=== PATIENT | female | born 1940 | race Caucasian/White ===

== ENCOUNTER 2017-10-15 18:10 | Inpatient (IN) | payer OTHER ==
[~2017-10-15] VITALS: Ht 149.9 cm; Wt 87.6 kg
[2017-10-15 19:35] LABS: BASOPHIL % 0.3 % (0-2); PLATELET COUNT 161 x10^3mcL (130-400)
[2017-10-15 19:44] LABS: CALCIUM 8.5 mg/dL (8.5-10.1); CARBON DIOXIDE 26.5 mmol/L (21-32); CHLORIDE SERUM 100 mmol/L (98-107); CREATININE SERUM 1.5 mg/dL (0.6-1.0); GLUCOSE SERUM 132 mg/dL (74-106); SODIUM SERUM 136 mmol/L (136-145)
[2017-10-15 19:57] LABS: ALKALINE PHOSPHATASE 64 U/L (46-116); ALT/SGPT 8 U/L (14-59); AST/SGOT 65 U/L (15-37); BILIRUBIN TOTAL 0.44 mg/dL (0.20-1.00); T4(THYROXINE) 7.3 ug/dL (4.7-13.3); TOTAL PROTEIN, SERUM 6.3 g/dL (6.4-8.2)
[2017-10-15 20:09] LABS: ALBUMIN 3.1 g/dL (3.4-5.0)
[2017-10-15] MEDS ORDERED: GRALISE600 MG PO (21:16)
[2017-10-15] MEDS ORDERED: SPIRONOLACTONE25 MG (21:17)
[2017-10-15] MEDS ORDERED: BRILINTA90 M1 PO (21:17)
[2017-10-15] MEDS ORDERED: GOOD SENSE ALL10 MG PO (21:17)
[2017-10-15] MEDS ORDERED: PRINIVIL10 MG PO (21:17)
[2017-10-15] MEDS ORDERED: GOOD SENSE ASPI81 M3 PO (21:18)
[2017-10-15] MEDS ORDERED: LIPITOR40 MG PO (21:18)
[2017-10-15] MEDS ORDERED: LEVEMIR100 U/M1 SC (21:19)
[2017-10-15] MEDS ORDERED: COR6 PO (21:19)
[2017-10-15 22:03] LABS: microscopic required? NO
[2017-10-15 22:17] LABS: urine erythrocyte NEGATIVE (NEGATIVE)
[2017-10-15 22:27] VITALS: BP 135/844
[2017-10-15 22:29] LABS: MAGNESIUM 1.4 mg/dL (1.8-2.4); PHOSPHOROUS 3.1 mg/dL (2.5-4.9)
[2017-10-15 22:30] LABS: CHOLESTEROL/HDL RATIO 3.8; T3 TOTAL 1.07 ng/mL
[2017-10-15 22:31] LABS: FREE T4 1.07 ng/dL (0.76-1.46); FREE THYROXINE INDEX 2.2 ug/dL (1.4-4.5); T4(THYROXINE) 6.8 ug/dL (4.7-13.3)
[2017-10-15 22:33] VITALS: Ht 149.9 cm; Wt 87.6 kg
[2017-10-15 23:13] VITALS: BP 135/84
[2017-10-16 05:40] VITALS: BP 133/63
[2017-10-16 07:16] LABS: BASOPHIL % 0.2 % (0-2); PLATELET COUNT 166 x10^3mcL (130-400); RED CELL DISTRIBUTION WIDTH 13.8 % (11.5-14.5)
[2017-10-16 07:27] LABS: CALCIUM 7.9 mg/dL (8.5-10.1); CARBON DIOXIDE 22.5 mmol/L (21-32); CHLORIDE SERUM 102 mmol/L (98-107); CREATININE SERUM 1.8 mg/dL (0.6-1.0); GLUCOSE SERUM 330 mg/dL (74-106); MAGNESIUM 2.4 mg/dL (1.8-2.4); PHOSPHOROUS 3.8 mg/dL (2.5-4.9); POTASSIUM SERUM 4.2 mmol/L (3.5-5.1); SODIUM SERUM 138 mmol/L (136-145)
[2017-10-16 09:04] VITALS: BP 140/72
[2017-10-16 13:27] VITALS: BP 127/73
[2017-10-16 20:41] VITALS: BP 135/48
[2017-10-17 05:39] VITALS: BP 141/63
[2017-10-17 06:25] LABS: BASOPHIL % 0.2 % (0-2); PLATELET COUNT 160 x10^3mcL (130-400); RED CELL DISTRIBUTION WIDTH 14.1 % (11.5-14.5)
[2017-10-17 06:54] LABS: CALCIUM 7.9 mg/dL (8.5-10.1); CARBON DIOXIDE 22.4 mmol/L (21-32); CHLORIDE SERUM 108 mmol/L (98-107); CREATININE SERUM 1.4 mg/dL (0.6-1.0); GLUCOSE SERUM 171 mg/dL (74-106); MAGNESIUM 2.4 mg/dL (1.8-2.4); PHOSPHOROUS 2.2 mg/dL (2.5-4.9); POTASSIUM SERUM 4.2 mmol/L (3.5-5.1); SODIUM SERUM 140 mmol/L (136-145)
[2017-10-17] MEDS ORDERED: TOLTERODINE TART2 M2 PO (10:10)
[2017-10-17] MEDS ORDERED: ACIDOPHILUS LA1 EACH PO (10:11)
[2017-10-17] MEDS ORDERED: LEVOFLOXACIN500 M1 PO (10:11)
[2017-10-17] MEDS ORDERED: MEDDP PO (10:12)
[2017-10-17 10:22] VITALS: BP 130/53
[2017-10-17] MEDS ORDERED: PULMICORT0.25 MG/2 IH (12:02)
[2017-10-17] MEDS ORDERED: IPRATROPIUM BROM3 M2 HHN (12:05)
[2017-10-17 13:26] VITALS: BP 130/53
== END 2017-10-17 14:20 | disposition home or self-care (01) | DRG 193 ==
LOC: ED 18:10 → DU 21:30
PROVIDERS: Emergency Medicine; Family Medicine
DX: J09.X2 Influenza due to identified novel influenza A virus with other respiratory manifestations (principal); N17.0 Acute kidney failure with tubular necrosis; E44.0 Moderate protein-calorie malnutrition; J44.1 Chronic obstructive pulmonary disease with (acute) exacerbation; J45.901 Unspecified asthma with (acute) exacerbation; E11.65 Type 2 diabetes mellitus with hyperglycemia; E11.51 Type 2 diabetes mellitus with diabetic peripheral angiopathy without gangrene; I25.10 Atherosclerotic heart disease of native coronary artery without angina pectoris; I10 Essential (primary) hypertension; E83.39 Other disorders of phosphorus metabolism; D64.9 Anemia, unspecified; I25.2 Old myocardial infarction; Z79.82 Long term (current) use of aspirin; Z79.4 Long term (current) use of insulin; Z95.5 Presence of coronary angioplasty implant and graft; Z86.73 Personal history of transient ischemic attack (TIA), and cerebral infarction without residual deficits; Z68.39 Body mass index [BMI] 39.0-39.9, adult
CPT/HCPCS: 36600; 82962; 83880; 84439; 87804; 94150; G0378; J1815; J1956; J2405; J2920; J2930; J3475; J7030; J7613; J7620; J7633; J7644; Q0092

== ENCOUNTER 2017-10-18 14:13 | Inpatient (IN) | payer OTHER ==
[~2017-10-18] VITALS: Ht 149.9 cm; Wt 89.9 kg
[~2017-10-18 14:13] MED LIST: ACIDOPHILUS LA1 EACH PO; BRILINTA90 M1 PO; COR6 PO; GOOD SENSE ALL10 MG PO; GOOD SENSE ASPI81 M3 PO; GRALISE600 MG PO; IPRATROPIUM BROM3 M2 HHN; LEVEMIR100 U/M1 SC; LEVOFLOXACIN500 M1 PO; LIPITOR40 MG PO; MEDDP PO; PRINIVIL10 MG PO; PULMICORT0.25 MG/2 IH; SPIRONOLACTONE25 MG; TOLTERODINE TART2 M2 PO
[2017-10-18 15:03] LABS: microscopic required? NO
[2017-10-18 15:10] LABS: urine erythrocyte NEGATIVE (NEGATIVE)
[2017-10-18 15:49] LABS: PLATELET COUNT 182 x10^3mcL (130-400); RED CELL DISTRIBUTION WIDTH 14.3 % (11.5-14.5)
[2017-10-18 15:52] LABS: BASOPHIL % 0 % (0-2)
[2017-10-18 16:02] LABS: CALCIUM 8.2 mg/dL (8.5-10.1); CARBON DIOXIDE 26.2 mmol/L (21-32); CHLORIDE SERUM 109 mmol/L (98-107); CREATININE SERUM 1.2 mg/dL (0.6-1.0); GLUCOSE SERUM 84 mg/dL (74-106); POTASSIUM SERUM 3.8 mmol/L (3.5-5.1); SODIUM SERUM 142 mmol/L (136-145)
[2017-10-18 16:06] LABS: ALKALINE PHOSPHATASE 57 U/L (46-116); ALT/SGPT 36 U/L (14-59); AST/SGOT 61 U/L (15-37); BILIRUBIN TOTAL 0.26 mg/dL (0.20-1.00); TOTAL PROTEIN, SERUM 6.4 g/dL (6.4-8.2)
[2017-10-18 20:28] LABS: MAGNESIUM 2.2 mg/dL (1.8-2.4); PHOSPHOROUS 2.7 mg/dL (2.5-4.9)
[2017-10-18 20:36] LABS: T3 TOTAL 0.92 ng/mL
[2017-10-18 20:37] LABS: FREE T4 0.89 ng/dL (0.76-1.46); FREE THYROXINE INDEX 2.1 ug/dL (1.4-4.5); T4(THYROXINE) 5.6 ug/dL (4.7-13.3)
[2017-10-18 20:48] VITALS: BP 172/79
[2017-10-18 23:39] VITALS: BP 114/66
[2017-10-19 05:57] VITALS: BP 147/61
[2017-10-19 09:49] VITALS: BP 150/62
[2017-10-19 13:00] VITALS: BP 147/71
[2017-10-19 14:22] LABS: PLATELET COUNT 183 x10^3mcL (130-400); RED CELL DISTRIBUTION WIDTH 14.1 % (11.5-14.5)
[2017-10-19 14:23] LABS: BASOPHIL % 0 % (0-2)
[2017-10-19 14:46] LABS: CALCIUM 7.8 mg/dL (8.5-10.1); CHLORIDE SERUM 105 mmol/L (98-107); CREATININE SERUM 1.6 mg/dL (0.6-1.0); GLUCOSE SERUM 239 mg/dL (74-106); POTASSIUM SERUM 5.2 mmol/L (3.5-5.1); SODIUM SERUM 138 mmol/L (136-145)
[2017-10-19 16:56] VITALS: Ht 149.9 cm; Wt 89.9 kg
[2017-10-19 17:05] VITALS: BP 153/57
[2017-10-19 20:20] VITALS: BP 134/52
[2017-10-20 05:19] VITALS: BP 133/68
[2017-10-20 07:27] LABS: CALCIUM 8.1 mg/dL (8.5-10.1); CARBON DIOXIDE 22.9 mmol/L (21-32); CHLORIDE SERUM 107 mmol/L (98-107); CREATININE SERUM 1.3 mg/dL (0.6-1.0); GLUCOSE SERUM 211 mg/dL (74-106); MAGNESIUM 2.2 mg/dL (1.8-2.4); PHOSPHOROUS 2.1 mg/dL (2.5-4.9); POTASSIUM SERUM 4.5 mmol/L (3.5-5.1); SODIUM SERUM 140 mmol/L (136-145)
[2017-10-20 07:37] LABS: BASOPHIL % 0.1 % (0-2); PLATELET COUNT 163 x10^3mcL (130-400); RED CELL DISTRIBUTION WIDTH 14.1 % (11.5-14.5)
[2017-10-20 08:50] VITALS: BP 145/54
[2017-10-20 12:36] VITALS: BP 152/59
[2017-10-20 17:33] VITALS: BP 143/58
[2017-10-20 20:59] VITALS: BP 141/48
[2017-10-21 05:16] VITALS: BP 151/52
[2017-10-21 09:34] VITALS: BP 138/84
[2017-10-21 13:14] VITALS: BP 151/68
[2017-10-21] MEDS ORDERED: LEVEMIR100 U/M1 SC (13:21)
== END 2017-10-21 16:00 | disposition home health service (06) | DRG 637 ==
LOC: ED 14:13 → DU 19:57
PROVIDERS: Emergency Medicine; Family Medicine
DX: E11.649 Type 2 diabetes mellitus with hypoglycemia without coma (principal); G93.41 Metabolic encephalopathy; E44.0 Moderate protein-calorie malnutrition; N17.0 Acute kidney failure with tubular necrosis; E11.65 Type 2 diabetes mellitus with hyperglycemia; E11.51 Type 2 diabetes mellitus with diabetic peripheral angiopathy without gangrene; I10 Essential (primary) hypertension; E78.5 Hyperlipidemia, unspecified; N32.81 Overactive bladder; I25.2 Old myocardial infarction; Z79.4 Long term (current) use of insulin; Z68.37 Body mass index [BMI] 37.0-37.9, adult; Z95.5 Presence of coronary angioplasty implant and graft; Z86.73 Personal history of transient ischemic attack (TIA), and cerebral infarction without residual deficits
CPT/HCPCS: 82962; 83880; 84439; 94150; J1815; J2920; J3490; J7030; J7613; J7620; J7633; J7644; Q0092

== ENCOUNTER 2017-11-16 12:43 | Emergency (ER) | payer OTHER ==
[~2017-11-16] VITALS: Ht 165.1 cm; Wt 88.9 kg
[2017-11-16 12:58] VITALS: Ht 165.1 cm; Wt 88.9 kg
[2017-11-16 18:50] VITALS: BP 144/63
== END 2017-11-16 18:50 | disposition home or self-care (01) ==
LOC: ED 12:43
DX: S29.012A Strain of muscle and tendon of back wall of thorax, initial encounter (principal); S09.90XA Unspecified injury of head, initial encounter; I10 Essential (primary) hypertension; E11.9 Type 2 diabetes mellitus without complications; J45.909 Unspecified asthma, uncomplicated; I25.2 Old myocardial infarction; Z95.5 Presence of coronary angioplasty implant and graft; Z86.73 Personal history of transient ischemic attack (TIA), and cerebral infarction without residual deficits; Z88.0 Allergy status to penicillin; Z88.1 Allergy status to other antibiotic agents; Z88.6 Allergy status to analgesic agent; V49.9XXA Car occupant (driver) (passenger) injured in unspecified traffic accident, initial encounter; Y93.89 Activity, other specified; Y99.8 Other external cause status; Y92.89 Other specified places as the place of occurrence of the external cause

== ENCOUNTER 2018-02-20 18:52 | Inpatient (IN) | payer OTHER ==
[~2018-02-20] VITALS: Ht 149.9 cm; Wt 81.9 kg
[2018-02-20 18:57] VITALS: Ht 149.9 cm; Wt 81.9 kg
[2018-02-20 19:53] LABS: PLATELET COUNT 142 x10^3mcL (130-400)
[2018-02-20 19:55] LABS: BASOPHIL % 0 % (0-2); RED CELL DISTRIBUTION WIDTH 15.1 % (11.5-14.5)
[2018-02-20 20:13] LABS: ALKALINE PHOSPHATASE 124 U/L (46-116); AST/SGOT 52 U/L (15-37); BILIRUBIN TOTAL 0.7 mg/dL (0.20-1.00); CARBON DIOXIDE 24.4 mmol/L (21-32); CHLORIDE SERUM 106 mmol/L (98-107); CREATININE SERUM 1.6 mg/dL (0.6-1.0); GLUCOSE SERUM 174 mg/dL (74-106); LIPASE 237 IU/L (73-393); POTASSIUM SERUM 3.6 mmol/L (3.5-5.1); SODIUM SERUM 143 mmol/L (136-145); TOTAL PROTEIN, SERUM 7.1 g/dL (6.4-8.2)
[2018-02-20 20:15] LABS: ALBUMIN 3.3 g/dL (3.4-5.0)
[2018-02-20 20:56] LABS: ALT/SGPT 29 U/L (14-59)
[2018-02-20 22:05] LABS: UA SPECIFIC GRAVITY 1.025 (1.005-1.035); microscopic required? YES; urine erythrocyte NEGATIVE (NEGATIVE)
[2018-02-20 23:19] VITALS: BP 99/50
[2018-02-21 00:07] LABS: MAGNESIUM 1.2 mg/dL (1.8-2.4); PHOSPHOROUS 1.9 mg/dL (2.5-4.9)
[2018-02-21 00:08] LABS: CHOLESTEROL/HDL RATIO 4.4
[2018-02-21 00:17] LABS: FREE T4 1.03 ng/dL (0.76-1.46); FREE THYROXINE INDEX 2.4 ug/dL (1.4-4.5); T4(THYROXINE) 7.7 ug/dL (4.7-13.3)
[2018-02-21 00:36] LABS: T3 TOTAL 1.13 ng/mL
[2018-02-21 05:57] VITALS: BP 120/60
[2018-02-21 06:23] LABS: PLATELET COUNT 138 x10^3mcL (130-400)
[2018-02-21 06:38] LABS: RED CELL DISTRIBUTION WIDTH 15.3 % (11.5-14.5)
[2018-02-21 06:49] LABS: CALCIUM 8.3 mg/dL (8.5-10.1); CARBON DIOXIDE 25.3 mmol/L (21-32); CHLORIDE SERUM 111 mmol/L (98-107); CREATININE SERUM 1.6 mg/dL (0.6-1.0); GLUCOSE SERUM 175 mg/dL (74-106); POTASSIUM SERUM 4.2 mmol/L (3.5-5.1); SODIUM SERUM 145 mmol/L (136-145)
[2018-02-21 07:45] LABS: BAND NEUTROPHIL 6 % (0-10); MONOCYTE 5 % (0-7); SEGMENTED NEUTROPHILS 83 % (37-75); rbc morphology (normal/abnorm) NORMAL (NORMAL)
[2018-02-21 09:18] VITALS: BP 113/43
[2018-02-21 13:39] VITALS: BP 114/42
[2018-02-21 17:29] VITALS: BP 107/40
[2018-02-21 21:33] VITALS: BP 112/42
[2018-02-22 05:41] VITALS: BP 122/40
[2018-02-22 07:13] LABS: BASOPHIL % 0 % (0-2); CALCIUM 7.6 mg/dL (8.5-10.1); CARBON DIOXIDE 23.2 mmol/L (21-32); CHLORIDE SERUM 111 mmol/L (98-107); CREATININE SERUM 1.7 mg/dL (0.6-1.0); GLUCOSE SERUM 149 mg/dL (74-106); MAGNESIUM 1.4 mg/dL (1.8-2.4); PHOSPHOROUS 1.9 mg/dL (2.5-4.9); PLATELET COUNT 106 x10^3mcL (130-400); POTASSIUM SERUM 3.9 mmol/L (3.5-5.1); RED CELL DISTRIBUTION WIDTH 15.5 % (11.5-14.5); SODIUM SERUM 145 mmol/L (136-145)
[2018-02-22 08:30] VITALS: BP 114/42
[2018-02-22 13:15] VITALS: BP 137/47
[2018-02-22 16:53] VITALS: BP 141/71
[2018-02-22 21:03] VITALS: BP 134/50
[2018-02-23 05:44] VITALS: BP 136/50
[2018-02-23 05:56] LABS: CALCIUM 7.3 mg/dL (8.5-10.1); CARBON DIOXIDE 23.1 mmol/L (21-32); CHLORIDE SERUM 113 mmol/L (98-107); CREATININE SERUM 1.5 mg/dL (0.6-1.0); GLUCOSE SERUM 137 mg/dL (74-106); MAGNESIUM 1.5 mg/dL (1.8-2.4); PHOSPHOROUS 2.6 mg/dL (2.5-4.9); POTASSIUM SERUM 3.9 mmol/L (3.5-5.1); SODIUM SERUM 146 mmol/L (136-145)
[2018-02-23 06:00] LABS: BASOPHIL % 0.3 % (0-2)
[2018-02-23 06:49] LABS: PLATELET COUNT 108 x10^3mcL (130-400); RED CELL DISTRIBUTION WIDTH 15.6 % (11.5-14.5)
[2018-02-23 08:24] VITALS: BP 121/55
[2018-02-23 09:30] VITALS: BP 121/55
[2018-02-23] MEDS ORDERED: MAGNESIUM OXID400 MG PO (09:50)
[2018-02-23] MEDS ORDERED: OSCD PO (09:50)
[2018-02-23 12:54] LABS: BASOPHIL % 0.4 % (0-2)
[2018-02-23 13:07] LABS: PLATELET COUNT 116 x10^3mcL (130-400); RED CELL DISTRIBUTION WIDTH 15.9 % (11.5-14.5)
[2018-02-23 13:40] VITALS: BP 134/43
== END 2018-02-23 17:37 | disposition home or self-care (01) | DRG 391 ==
LOC: ED 18:52 → DU 22:09
PROVIDERS: Emergency Medicine; Family Medicine
DX: A08.4 Viral intestinal infection, unspecified (principal); N17.0 Acute kidney failure with tubular necrosis; E44.1 Mild protein-calorie malnutrition; I10 Essential (primary) hypertension; E11.51 Type 2 diabetes mellitus with diabetic peripheral angiopathy without gangrene; E11.42 Type 2 diabetes mellitus with diabetic polyneuropathy; I12.9 Hypertensive chronic kidney disease with stage 1 through stage 4 chronic kidney disease, or unspecified chronic kidney disease; N18.3 Chronic kidney disease, stage 3 (moderate); I25.10 Atherosclerotic heart disease of native coronary artery without angina pectoris; E83.42 Hypomagnesemia; E83.51 Hypocalcemia; D69.6 Thrombocytopenia, unspecified; E83.39 Other disorders of phosphorus metabolism; N32.81 Overactive bladder; E78.5 Hyperlipidemia, unspecified; D64.9 Anemia, unspecified; E87.8 Other disorders of electrolyte and fluid balance, not elsewhere classified; I25.2 Old myocardial infarction; Z79.4 Long term (current) use of insulin; Z79.899 Other long term (current) drug therapy; Z68.27 Body mass index [BMI] 27.0-27.9, adult; Z95.5 Presence of coronary angioplasty implant and graft
CPT/HCPCS: 82962; 83880; 84439; C9113; J1815; J1956; J2405; J3010; J3475; J3490; J7030; Q0092; Q9967

== ENCOUNTER 2019-08-03 21:49 | Inpatient (IN) | payer OTHER ==
[~2019-08-03] VITALS: Ht 149.9 cm; Wt 77.1 kg
[~2019-08-03 21:49] MED LIST changes: +ALL DAY ALL1 MG/1 ML; -GOOD SENSE ALL10 MG PO; +MAGNESIUM OXID400 MG PO; +OSCD PO
--- NOTE | 2019-08-03 22:05 | NUR ---
PT BIB AMBULANCE TODAY WITH C/C OF FLU LIKE SYMPTOMS AND N/V/D. PT REPORTS THAT SHE HAS BEEN "SICK" WITH FEVER AND CHILLS X4-5 DAYS. REPORTS THAT JUST TODAY SHE BEGAN HAVING N/V/D. PT DOES REPORT HISTORY OF DIVERTICULITIS. PT RECEIVED 4MG OF ZOFRAN IVP IN ROUTE, REPORTS LITTLE RELIEF BUT STILL HAVING NAUSEA, NO VOMITING NOTED. PT IS AWAKE AND ALERT, RESP E/U, NAD NOTED. AWAITING MSE.
--- NOTE | 2019-08-03 22:16 | NUR ---
DR TINOCO AT BEDSIDE FOR MSE.
--- NOTE | 2019-08-03 22:42 | NUR ---
PT MEDICATED PER ORDER, PT VERBALIZED UNDERSTANDING OF MEDICATIONS PRIOR TO ADMINISTRATION.
[2019-08-03 22:59] LABS: BASOPHIL % 0.4 % (0-2); PLATELET COUNT 211 x10^3mcL (130-400); RED CELL DISTRIBUTION WIDTH 14.4 % (11.5-14.5)
[2019-08-03 23:07] LABS: CALCIUM 8.9 mg/dL (8.5-10.1); CARBON DIOXIDE 25.5 mmol/L (21-32); CHLORIDE SERUM 104 mmol/L (98-107); CREATININE SERUM 1.5 mg/dL (0.6-1.0); GLUCOSE SERUM 177 mg/dL (74-106); POTASSIUM SERUM 3.7 mmol/L (3.5-5.1); SODIUM SERUM 142 mmol/L (136-145)
[2019-08-03 23:12] LABS: ALBUMIN 3.6 g/dL (3.4-5.0); ALKALINE PHOSPHATASE 80 U/L (46-116); ALT/SGPT 31 U/L (14-59); AST/SGOT 56 U/L (15-37); BILIRUBIN TOTAL 0.6 mg/dL (0.20-1.00); TOTAL PROTEIN, SERUM 7.3 g/dL (6.4-8.2)
[2019-08-03 23:58] LABS: UA SPECIFIC GRAVITY 1.025 (1.005-1.035); microscopic required? YES; urine erythrocyte NEGATIVE (NEGATIVE)
--- NOTE | 2019-08-04 00:48 | NUR ---
PT AWAKE AND ALERT, LAYING IN POSITION OF COMFORT. VSS, RESPS E/U, NAD NOTED AT THIS TIME. PT REPORTS 8/10 STACY PAIN. WILL MAKE MD AWARE.
--- NOTE | 2019-08-04 00:49 | NUR ---
IV ABX STARTED PER MD ORDER.
--- NOTE | 2019-08-04 01:32 | NUR ---
PT REPORTS DECREASE IN HEAD PAIN TO 5/10 AFTER CHIEF II DISPATCHER
--- NOTE | 2019-08-04 01:59 | NUR ---
REPORT GIVEN TO ELIAS ALBERTO MED SURG
[2019-08-04 02:51] VITALS: BP 129/67
--- NOTE | 2019-08-04 03:06 | NUR ---
ADMITTED AN 82 YEARS OLD FEMALE CAME IN VIA GURNEY ACCOMPANIED BYPrema R STAFF WITH C/O GENERALIZED BODY WEAKNESS, ABDOMINAL PAIN, DIARRHEA, NAUSEA AND VOMITING. MEDICATED IN ER FOR PAIN, MORPHINE 4MG IVP AND TORADOL 4MG IVP GIVEN IN ER. KEPT IN COMFORT AND ORIENTED TO ROOM AND DEVICES. IV TO LAC INTACT AND INFUSING WELL. TO CALL DR CERNA FOR ADMISSION ORDERS. WILL CONTINUE TO MONITOR. CALL LIGHT WITHIN REACH.
--- NOTE | 2019-08-04 03:30 | NUR ---
WITH ADMISSION ORDERS FROM DR CERNA AND CARRIED OUT, STARTED WITH D51/2 NS INFUSING AT 75ML/HR. SLEEPING THIS TIME BREATHING EASYA ND NONLABOR. WILL CONTINUE TO MONITOR.
--- NOTE | 2019-08-04 05:08 | NUR ---
SLEEPING THIS TIME DENIES PAIN AND DISCOMFORT SINCE PATIENT ADMITTED TO FLOOR. ALL NEEDS ATTENDED.
[2019-08-04 05:45] VITALS: BP 146/72
--- NOTE | 2019-08-04 07:18 | NUR ---
REPORT TAKEN FROM HIDE COOKING OPERATOR NURSE AT THE BEDSIDE, PATIENT SLEEPING WITH SITTER AT THE BEDSIDE, CHEST RISE AND FALL OBSERVED, NO ACUTE DISTRESS OBSERVED, WILL CONTINUE TO MONITOR.
[2019-08-04 09:16] VITALS: BP 150/67
[2019-08-04 16:58] VITALS: BP 153/61
--- NOTE | 2019-08-04 17:11 | NUR ---
DR. HEBERT PAGED AT THIS TIME TO REPORT THE PATIENT REPORTED GENRALIZED ITCHING, WHICH SHE HAS HAD SINCE BEFORE SHE WAS ADMITTED TO THE HOSPITAL. DR. HEBERT GAVE VERBAL TELEPHONE ORDER FOR 25MG OF BENADRYL PO Q6 PRN. WILL INPUT ORDER AND GIVE, AND CONTINUE TO MONITOR.
--- NOTE | 2019-08-04 19:12 | NUR ---
REPORT GIVEN TO CLOAK ROOM ATTENDANT NURSE, CARE ENDORSED
[2019-08-04 19:52] VITALS: BP 153/51
--- NOTE | 2019-08-04 19:54 | NUR ---
PATIENT RECEIVED IN BED DURING BEDSIDE HANDS OFF AWAKE,ALERT AND ORIENTED X3, FORGETFUL, SPEECH CLEAR. BREATHING EVEN AND UNLABORED BS CLEAR DIMINISHED BASES, ON ROOM AIR SAT 96%. DENIED CHEST PAINS, HR=70BPM, NO TELE ORDER, MED/SURG PATIENT. IV SITE NO SIGN OF INFILTRATION, TAPE SECURED. PATIENT ADMITTED WITH C/O DIARRHEA, PATIENT STATES LAST BM WAS SUNDAY AND IT WAS LOOSE, DENIED HAVING DIARRHEA TODAY, DENIED N/V. DULL BEARABLE ABDOMINAL DISCOMFORT/PAIN RATED AT 4/10 INFORMED ABOUT PAIN MANAGEMENT. SAFETY/FALL PRECATIONS MAINTAINED.
--- NOTE | 2019-08-04 22:30 | NUR ---
PATIENT AWAKE THIS TIME, HS CARE RENDERED, PATIENT OFFERED NO COMPLAINTS. INFORMED TO CALL NURSE IF NEEDS ARISES. SAFETY PRECAUTIONS MAINTAINED. WILL CONTINUE TO MONITOR.
--- NOTE | 2019-08-05 00:34 | NUR ---
COMPLAINED OF FEELING ITCHY NO RASH NOTED, MEDICATEDN PRN FOR ITCHINESS.
--- NOTE | 2019-08-05 01:53 | NUR ---
COMPLAINED OF ABDOMINAL PAIN AND WANTING TO SLEEP, MEDICATED PRN. WILL RE-ASSESS EFFECTIVENESS OF MEDS GIVEN.
--- NOTE | 2019-08-05 02:44 | NUR ---
RE=ASSESS EFFECTIVENESS OF PAIN SHOT, PATIENT SLEEPING BUT AWAKEN WHEN NAME CALLED STATED ABDOMINAL PAIN AT 2/10 NOW, COMFORTABLE.
--- NOTE | 2019-08-05 06:16 | NUR ---
PATIENT AFTER GETTING PAIN MEDS AND SLEEPING SLEPT WELL DURING THE SHIFT, RECEIVED DESIRED RELIEF FROM PAIN MEDS GIVEN FOR COMPLAINT OF ABDOMINAL PAIN. MEDICATED WITH BENADRYL FOR COMPLAINT OF ITCHINESS NO RASH NOR REDNESS NOTED, RECEIVED RELIEF. IV SITE NO SIGN OF INFILTRATION, TAPE SECURED. ASSISTED OOB TO THE BATHROON WITH SLOW STEADY GAIT, VOIDED WITHOUT DIFF. NO DIARHHEA DURING THE SHIFT. SAFETY/FALL PRECAUTIONS OBSERVED AND MAINTAINED. WILL ENDORSE CONTINUITY OR CARE TO INCOMING NURSE.
[2019-08-05 06:32] VITALS: BP 138/56
[2019-08-05 06:34] VITALS: BP 138/56
[2019-08-05 06:55] LABS: BASOPHIL % 0.5 % (0-2); PLATELET COUNT 166 x10^3mcL (130-400); RED CELL DISTRIBUTION WIDTH 14.2 % (11.5-14.5)
[2019-08-05 07:03] LABS: ALKALINE PHOSPHATASE 60 U/L (46-116); ALT/SGPT 22 U/L (14-59); AST/SGOT 43 U/L (15-37); BILIRUBIN TOTAL 0.48 mg/dL (0.20-1.00); CALCIUM 7.9 mg/dL (8.5-10.1); CHLORIDE SERUM 107 mmol/L (98-107); CREATININE SERUM 1.6 mg/dL (0.6-1.0); GLUCOSE SERUM 127 mg/dL (74-106); MAGNESIUM 1.8 mg/dL (1.8-2.4); POTASSIUM SERUM 3.4 mmol/L (3.5-5.1); SODIUM SERUM 140 mmol/L (136-145)
[2019-08-05 07:17] LABS: ALBUMIN 2.8 g/dL (3.4-5.0); TOTAL PROTEIN, SERUM 5.6 g/dL (6.4-8.2)
--- NOTE | 2019-08-05 07:30 | NUR ---
PT ENDORSE TO ME THIS MORNING, LAYING IN BED RESTING. AA/O X4. BREATHING EVEN AND UNLABORED ON RA, NO ACUTE RESP DISTRESS OR SOB NOTED. MEDSURG/ DENIES ANY CP OR PRESSURE. VOIDS FREELY. BRP. AMB WITH ASSIST AT TIMES. SKIN WARM TO TOUCH AND INTACT. IV TO THE LAC INTACT AND PATENT/ INFUSING D5 1/2 NS AT 75ML/HR. TOLERATING WELL. CALL LIGHT IN REACH. BED IN LOW POSITION. WILL CONTINUE TO MONITOR.
--- NOTE | 2019-08-05 07:33 | NUR ---
bedside hands off report and introduction performed with incoming nurse dorinda.
[2019-08-05 08:59] VITALS: BP 155/45
--- NOTE | 2019-08-05 10:00 | NUR ---
PT C/O N/V, MEDICATED PER EMAR.
--- NOTE | 2019-08-05 14:25 | NUR ---
PT SITTING UP IN CHAIR, ASSISTED TO BATHROOM, TOLERATED 100 % OF LUNCH.,DENIES ANY N/V OR PAIN AT THIS TIME. WILL CONTINUE TO MONITOR.
[2019-08-05 17:44] VITALS: BP 170/75
--- NOTE | 2019-08-05 17:51 | NUR ---
PT DR. HEBERT DUE TO CURRENT BP. WILL CONTINUE TO MONITOR.
--- NOTE | 2019-08-05 18:56 | NUR ---
NO ACUTE CHANGES AT THIS TIME. NO ACUTE RESP DISTRESS OR SOB NOTED. PT STATED N/V IS MUCH BETTER. PAGED DR. HEBERT REGRADING PT CURRENT BP, STILL WAITING CALL BACK / TO ASK IF WE CAN CONTINUE CURRENT HOME MEDS. WILL ENDORSE TO INCOMING RN.
--- NOTE | 2019-08-05 19:35 | NUR ---
PT RECEIVED A/O X4, ABLE TO MAKE NEEDS KNOWN. MED-SURG, DENIES ANY CP/PRESSURE. PULSES PALPABLE, NO EDEMA PRESENT. BREATHING IS EVEN AND UNLABORED ON RA, NO RESP DISTRESS NOTED. ABD SOFT AND NONDISTENDED, PT REPORTS INTERMITTENT EPISODES OF NAUSEA. VOIDS FREELY, BRP. GENERALIZED WEAKNESS, AMBULATORY WITH STEADY GAIT. SKIN IS WARM AND DRY, INTACT. PT DENIES HAVING ANY PAIN AT THIS TIME. IV TO LAC, INTACT. NO ACUTE DISTRESS NOTED. BED IN LOWEST SETTING, SIDE RAILS UP X2, CALL LIGHT WITHIN REACH. WILL CONT TO MONITOR.
--- NOTE | 2019-08-05 20:05 | NUR ---
DR HEBERT CALLED AND MADE AWARE OF BP. PER DR HEBERT, "I'M NOT CONCERNED ABOUT THE PT'S BP RIGHT NOW." NO NEW ORDERS RECEIVED. PT IN NO ACUTE DISTRESS. WILL CONT TO MONITOR.
[2019-08-05 21:06] VITALS: BP 180/75
--- NOTE | 2019-08-05 21:56 | NUR ---
PT C/O NAUSEA, PRN ZOFRAN IVP GIVEN ORDERED. EMESIS BAG PROVIDED. NO ACUTE DISTRESS NOTED. WILL CONT TO MONITOR.
--- NOTE | 2019-08-05 22:48 | NUR ---
PT C/O INSOMNIA, PRN AMBIEN GIVEN ORDERED. WILL CONT TO MONITOR.
--- NOTE | 2019-08-06 01:19 | NUR ---
PT RESTING IN BED WITH EYES CLOSED, BUT IS EASILY AROUSABLE. BREATHING IS EVEN AND UNLABORED, NO RESP DISTRESS NOTED. NO S/S OF PAIN OBSERVED. IVF INFUSING WELL, SITE WNL. NO ACUTE DISTRESS NOTED. CALL LIGHT WITHIN REACH. WILL CONT TO MONITOR.
--- NOTE | 2019-08-06 05:37 | NUR ---
PT SLEPT AT INTERVALS THROUGHOUT THE EVENING. BREATHING IS EVEN AND UNLABORED, NO RESP DISTRESS NOTED. PT DENIES HAVING ANY NAUSEA OR PAIN AT THIS TIME. NO ACUTE CHANGES ENCOUNTERED DURING SHIFT. ALL NEEDS MET AND ANTICIPATED. PT COMPLIANT WITH NURSING CARE. IV TO LAC, INTACT. CALL LIGHT WIITHIN REACH. WILL ENDORSE CARE TO AM NURSE.
[2019-08-06 05:46] VITALS: BP 154/56
[2019-08-06 06:36] LABS: BASOPHIL % 0.4 % (0-2)
[2019-08-06 06:44] LABS: ALKALINE PHOSPHATASE 60 U/L (46-116); AST/SGOT 40 U/L (15-37); BILIRUBIN TOTAL 0.32 mg/dL (0.20-1.00); CALCIUM 7.9 mg/dL (8.5-10.1); CARBON DIOXIDE 23.9 mmol/L (21-32); CHLORIDE SERUM 109 mmol/L (98-107); CREATININE SERUM 1.3 mg/dL (0.6-1.0); GLUCOSE SERUM 138 mg/dL (74-106); MAGNESIUM 1.8 mg/dL (1.8-2.4); POTASSIUM SERUM 3.5 mmol/L (3.5-5.1); SODIUM SERUM 142 mmol/L (136-145)
[2019-08-06 06:55] LABS: ALBUMIN 2.8 g/dL (3.4-5.0); TOTAL PROTEIN, SERUM 5.7 g/dL (6.4-8.2)
--- NOTE | 2019-08-06 07:10 | NUR ---
RECIEVED PT SITTING UP IN BED WITH NO C/O PAIN OR DISTRESS. A/O X4 NO STACY OR DIZZINESS REPORTED. D5-0.45%NS RUNNING AT 75ML/HR IN LAC, INTACT AND PATENT WITH NO REDNESS OR INFLAMMATION. SAFETY PRECAUTIONS IN PLACE, CALL LIGHT WITHIN REACH, WILL MONITOR.
--- NOTE | 2019-08-06 07:27 | NUR ---
PT IN NO ACUTE DISTRESS. CONTINUITY OF CARE ENDORSED TO CYNTHIA ALBERTO. ALL QUESTION AND CONCERNS ADDRESSED.
[2019-08-06 07:45] LABS: PLATELET COUNT 166 x10^3mcL (130-400); RED CELL DISTRIBUTION WIDTH 14.4 % (11.5-14.5)
[2019-08-06 07:51] LABS: ALT/SGPT 25 U/L (14-59)
[2019-08-06 09:04] VITALS: BP 153/43
--- NOTE | 2019-08-06 11:25 | NUR ---
LAC REMOVED WITH CATHETER INTACT D/T LEAKING. NEW IV STARTED IN LFA 22G, BOTH SITES FREE OF REDNESS OR INFLAMMATION.
--- NOTE | 2019-08-06 12:32 | NUR ---
TORADOL GIVEN PER EMAR FOR C/O , WILL REASSESS.
--- NOTE | 2019-08-06 15:03 | NUR ---
PT STABLW WITH NO C/O PAIN OR DISTRESS. SAFETY PRECAUTIONS IN PLACE, CALL LIGHT WITHIN REACH, WILL MONITOR.
[2019-08-06 17:21] VITALS: BP 184/79
--- NOTE | 2019-08-06 17:38 | NUR ---
ZOFRAN GIVEN PER EMAR FOR C/O NAUSEA, WILL REASSESS.
--- NOTE | 2019-08-06 18:24 | NUR ---
PT STABLE AT THSI TIME WITH NO C/O PAIN OR DISTRESS. NO N/V NOTED AT THIS TIME. A/O X4 WITH NO STACY OR DIZZINESS. LUNGS CTAB, NO SOB NOTED. D5-0.45% NS RUNNING AT 75ML/HR IN LFA, IV INTACT AND PATENT WITH NO REDNESS OR INFLAMMATION NOTED. SAFETY PRECAUTIONS IN PLACE, CALL LIGHT WITHIN REACH, WILL ENDORSE CARE TO NIGHT NURSE.
[2019-08-06 18:45] VITALS: BP 150/72
--- NOTE | 2019-08-06 19:30 | NUR ---
Pt. received from day shift, currently resting in bed on the phone. Pt. is a/o x3, able to make needs known, able to follow commands. Pt. has no c/o of chest pain or of SOB at this time. Pt. does c/o of feeling nauseous and does report that the zofran given earlier was not helping that much, but the toradol did. Informed pt. that I will place a call to the MD to see if they can order a stronger anti-nausea medication at this time. Pt. agreed and will continue to monitor pt. Pt. noted to be ambulatory and as per day shift does need assitance getting out of bed, will continue to monitor. Pt. IV in tact and D5 1/2 NS running at 75 on LFA 22g running at this time. Pt. safety in check with call light placed within reach, educated pt. on when and how to use call light system, bed set at lowest position, will continue to monitor. pt.
[2019-08-06 20:22] VITALS: BP 170/44
--- NOTE | 2019-08-06 20:49 | NUR ---
Pt. req something stronger for Nausea, IP call center called at [phone], Candice was on the other end of the line. Dr. Mitchell paged d/t on-call status for the night. Will ask MD for another medication for nausea.
--- NOTE | 2019-08-06 21:01 | NUR ---
Dr. Mitchell called back at 2100 and gave New Order for Phenergan 12.5 mg IVP q4h for Nausea/Vomitting at this time. Will continue to monitor pt.
--- NOTE | 2019-08-06 22:28 | NUR ---
Pt. c/o of h/a at this time, will medicate as ordered w/ toradol. Pt. also c/o of nausea will medicate w/ phenergan as ordered. Will continue to monitor pt. Educated pt. when and how to use call light system and ensured bed set at lowest position.
--- NOTE | 2019-08-06 23:26 | NUR ---
Pt. c/o of not being able to sleep at this time, will medicate w/ ambien as ordered and continue to monitor.
--- NOTE | 2019-08-07 02:41 | NUR ---
Pt. resting in bed, asleep, able to be aroused using verbal stimuli. pt. has no c/o of pain, sob, or s/o of distress at this time. Pt. was given ab(x) at this time also. Pt. safety in check with call light placed within reach, pt. bed set at lowest position, will continue to monitor pt.
--- NOTE | 2019-08-07 04:43 | NUR ---
Pt. asleep through most of the shift, no c/o of pain, SOB, or s/o distress. Pt. did ask for ambien around midnight, medicated pt. as ordered. Pt. currently asleep but easily arousable with verbal stimuli. Pt. stable throughout shift, safety in check with call light placed within reach, bed set at lowest position, will continue to monitor pt. until the end of shift and endorse to next shift RN.
[2019-08-07 07:02] LABS: BASOPHIL % 0.5 % (0-2); PLATELET COUNT 180 x10^3mcL (130-400); RED CELL DISTRIBUTION WIDTH 14.5 % (11.5-14.5)
--- NOTE | 2019-08-07 07:15 | NUR ---
RECEIVED PATIENT. ALERT AWAKE, AND ORIENTED X4. NO ACUTE RESPIRATORY DISTRESS NOTED. REMAINS ON ROOM AIR. NO C/O CHEST PAIN OR PRESSURE AT THIS TIME. PATIENT IS SLIGHTLY NAUSEATED, STATES THAT IT MIGHT BE GOOD TO HAVE NAUSEA MEDICATION BEFORE BREAKFAST. REASSURED PATIENT THAT SHE WILL BE GIVEN ZOFRAN TO AID WITH NAUSEA. SAFETY PRECAUTIONS IN PLACE. CALL LIGHT WITHIN REACH. WILL CONTINUE TO MONITOR.
[2019-08-07 07:27] LABS: ALKALINE PHOSPHATASE 62 U/L (46-116); ALT/SGPT 26 U/L (14-59); AST/SGOT 47 U/L (15-37); BILIRUBIN TOTAL 0.4 mg/dL (0.20-1.00); CALCIUM 7.9 mg/dL (8.5-10.1); CARBON DIOXIDE 24.6 mmol/L (21-32); CHLORIDE SERUM 108 mmol/L (98-107); CREATININE SERUM 1.2 mg/dL (0.6-1.0); GLUCOSE SERUM 107 mg/dL (74-106); MAGNESIUM 1.5 mg/dL (1.8-2.4); POTASSIUM SERUM 3.2 mmol/L (3.5-5.1); SODIUM SERUM 144 mmol/L (136-145)
[2019-08-07 07:30] LABS: ALBUMIN 2.9 g/dL (3.4-5.0); TOTAL PROTEIN, SERUM 5.8 g/dL (6.4-8.2)
--- NOTE | 2019-08-07 07:40 | NUR ---
OFFERED PATIENT NAUSEA MEDICATION AT THIS TIME. PATIENT STATES NO NEED FOR NAUSEA MEDICATION AT THIS TIME AND WILL TRY TO EAT BREAKFAST WITHOUT MEDICATION.
[2019-08-07 08:55] VITALS: BP 147/61
--- NOTE | 2019-08-07 09:45 | NUR ---
PATIENT IS AWAKE, ALERT AND ORIENTED X4. NO RESPIRATORY DISTRESS NOTED. NO C/O PAIN AT THIS TIME. PATIENT COMPLAINED OF BURNING IV SITE. D/C IV TO LFA, WILL INSERT NEW IV. NO COMPLAINT OF CHEST PAIN. ASSISTED PATIENT TO GET OFF BED AND WALK TO THE RESTROOM. SAFETY PRECAUTIONS IN PLACE. CALL LIGHT WITHIN REACH. WILL CONTINUE TO MONITOR.
--- NOTE | 2019-08-07 10:40 | NUR ---
SPOKE TO DR HEBERT AT THIS TIME REGARDING PATIENT POC. PER DR EMILEE ROLDAN TO INPUT TELEPHONE ORDER TO ADVANCE PATIENT DIET TO [facility] AND TELEPHONE ORDER SET FOR INSULIN SLIDING SCALE. REPORTED TO DR HEBERT PATIENT POTASSIUM 3.[address] EMILEE ROLDAN TO INPUT TELEPHONE ORDER FOR 40MEQ POTASSIUM PO. ALL TELEPHONE ORDERS READ BACK, CONFIRMED, AND FOLLOWED THROUGH. ALL NEEDS ATTENDED TO. WILL CONTINUE TO MONITOR
--- NOTE | 2019-08-07 11:20 | NUR ---
NEW IV STARTED TO RFA 22G BY GLENN, CHARGE NURSE. PATIENT TOLERATED WELL. IV INTACT AND PATENT. WILL CONTINUE TO MONITOR.
--- NOTE | 2019-08-07 11:57 | NUR ---
PATIENT COMPLAINING OF NAUSEA. ZOFRAN 4MG IVP GIVEN. PATIENT TOLERATED WELL. WILL CONTINUE TO MONITOR.
--- NOTE | 2019-08-07 12:30 | NUR ---
PATIENT IS IN BED, EATING LUNCH. NO ACUTE RESPIRATORY DISTRESS NOTED. NO C/O OF NAUSEA AT THIS TIME. PATIENT TOLERATING DIET WELL. PATIENT STABLE. IV INTACT AND PATENT, NO INFILTRATION NOTED. SAFETY PRECAUTION IN PLACE. HOB ELEVATED. CALL LIGHT WITHIN REACH. WILL CONTINUE TO MONITOR.
--- NOTE | 2019-08-07 15:30 | NUR ---
PATIENT IS IN BED, SLEEPING. REMAINS ON ROOM AIR, NO ACUTE RESPIRATORY DISTRESS NOTED. NO C/O PAIN OR NAUSEA AT THIS TIME. IV INTACT AND PATENT. SAFETY PRECAUTIONS IN PLACE. CALL LIGHT WITHIN REACH. WILL CONTINUE TO MONITOR.
--- NOTE | 2019-08-07 16:53 | NUR ---
PATIENT IS COMPLAINING OF NAUSEA, PROMETHAZINE 12.5 MG IVP GIVEN. PATIENT TOLERATED WELL. WILL CONTINUE TO MONITOR.
[2019-08-07 17:00] VITALS: BP 119/65
--- NOTE | 2019-08-07 18:42 | NUR ---
PATIENT IS STABLE. NO ACUTE RESPIRATORY DISTRESS NOTED. REMAINS ON ROOM AIR. NO C/O PAIN OR DISCOMFORT AT THIS TIME. IV INTACT AND PATENT, NO INFILTRATION NOTED. SAFETY PRECAUTION IN PLACE. HOB ELEVATED. BLE ELEVATED FOR COMFORT. CALL LIGHT WITHIN REACH. ALL NEEDS MET. CALL LIGHT WITHIN REACH. ALL NEEDS ATTENDED TO. WILL ENDORSE TO SCRUB TECH NURSE.
--- NOTE | 2019-08-07 19:20 | NUR ---
RECEIVED PT FROM KIMANI ALBERTO. PT IS AAOX4 AND DENIES HEADACHE OR DIZZINES AT THIS TIME. PT IS MED-SURG AND DENIES CHEST PAIN OR PRESSURE AT THIS TIME. PT PULSES ARE PALPABLE AND CAP REFILL <3 SEC. PT LUNG SOUNDS ARE CTA ON RA. PT BREATHING IS EVEN AND UNLABORED. PT DENIES SOB OR RESPIRATORY DISTRESS AT THIS TIME. PT ABD IS SOFT AND NONDISTENDED. PT BOWEL SOUNDS ACTIVE X4. PT C/O NAUSEA AND DENIES V/D AT THIS TIME. PT LBM 08/07/19, SOFT. PT VOIDS FREELY. PT C/O PAIN UPON URINATION AND ITCHINESS IN HER VAGINA. PT HAS GENERALIZED WEAKNESS, BUT IS AMBULATORY WITH ASSIST. PT SKIN IS WARM, DRY, AND INTACT. PT IV IS PATENT AND WNL. CALL LIGHT WITHIN REACH. BED IN LOWEST POSITION. SIDE RAILS X2 UP. WILL CONTINUE TO MONITOR.
--- NOTE | 2019-08-07 20:55 | NUR ---
PER MAR, ADMINISTERED BENADRYL FOR ITCHINESS AND PHENERGEN FOR NAUSEA. WILL CONTINUE TO MONITOR.
[2019-08-07 21:35] VITALS: BP 149/54
--- NOTE | 2019-08-07 23:05 | NUR ---
PT C/O PAIN UPON URINATION AND A HEADACHE. PER MAR, ADMINISTERED TORADOL. WILL REASSESS AND WILL CONTINUE TO MONITOR.
--- NOTE | 2019-08-07 23:55 | NUR ---
PT STATED "I WOULD LIKE SOMETHING TO HELP ME SLEEP." PER MAR, ADMINISTERED AMBIEN FOR INSOMNIA. WILL CONTINUE TO MONITOR.
--- NOTE | 2019-08-08 01:31 | NUR ---
PT SLEEPING IN BED. PT BREATHING IS EVEN AND UNLABORED. NO ACUTE DISTRESS NOTED AT THIS TIME. IVF INFUSING WELL. CALL LIGHT WITHIN REACH. BED IN LOWEST POSITION. SIDE RAILS X2 UP. WILL CONTINUE TO MONITOR.
--- NOTE | 2019-08-08 04:54 | NUR ---
PT SLEPT THROUGHOUT MOST OF THE NIGHT AND WOKE UP TO USE THE BATHROOM. PT COMPLIED WITH NURSING CARE THROUGHOUT THE SHIFT. NO ACUTE DISTRESS NOTED DURING THE SHIFT. PT HAD EPISODES OF NAUSEA AND WAS MEDICATED WITH PHENERGAN PER MAR. COMFORT AND SAFETY MEASURES WERE MAINTAINED DURING THE SHIFT. ALL NEEDS AND CONCERNS ADDRESSED. WILL ENDORSE CARE TO DAY SHIFT NURSE. WILL CONTINUE TO MONITOR.
[2019-08-08 05:23] VITALS: BP 145/62
--- NOTE | 2019-08-08 06:08 | NUR ---
PT RFA IV INFILTRATED. NEW IV INSERTION DONE BY DELIVERY MERCHANDISER RHODA. NEW IV LFA 22G. NO S/S OF REDNESS, PAIN, OR SWELLING NOTED. WILL CONTINUE TO MONITOR.
--- NOTE | 2019-08-08 06:30 | NUR ---
ASSISTED PT TO BATHROOM. PT HAD BM, SOFT AND DARK GREEN COLOR. ASSISTED PT BACK TO BED AND RECONNECTED IVF. IVF INFUSING WELL. NO S/S OF INFILTRATION. WILL CONTINUE TO MONITOR.
[2019-08-08 06:45] LABS: BASOPHIL % 0.3 % (0-2); PLATELET COUNT 171 x10^3mcL (130-400); RED CELL DISTRIBUTION WIDTH 14.5 % (11.5-14.5)
[2019-08-08 07:18] LABS: ALKALINE PHOSPHATASE 63 U/L (46-116); ALT/SGPT 26 U/L (14-59); AST/SGOT 50 U/L (15-37); BILIRUBIN TOTAL 0.4 mg/dL (0.20-1.00); CALCIUM 8.3 mg/dL (8.5-10.1); CHLORIDE SERUM 109 mmol/L (98-107); CREATININE SERUM 1.3 mg/dL (0.6-1.0); GLUCOSE SERUM 125 mg/dL (74-106); MAGNESIUM 1.6 mg/dL (1.8-2.4); POTASSIUM SERUM 3.9 mmol/L (3.5-5.1); SODIUM SERUM 142 mmol/L (136-145)
[2019-08-08 07:19] LABS: ALBUMIN 2.8 g/dL (3.4-5.0); TOTAL PROTEIN, SERUM 5.6 g/dL (6.4-8.2)
--- NOTE | 2019-08-08 07:50 | NUR ---
RECEIVED PT FROM SANITATION WORKER HOSING MACHINERY RN. Jamison/MICHAEL. MED SURG. DENIES CHEST PAIN/PRESSURE. RESPIRATIONS EQUAL AND UNLABORED ON RA. DENIES SOB. PT C/O STILL FEELING WEAK. PT DENIES ANY N/V. PT DNENIES ANY PAIN AT THIS TIME. PT C/O PAINFUL URINATION. DR. HEBERT MADE AWARE. IV TO LFA PATENT AND INFUSING. NO REDNESS OR SWELLING NOTED. DR. HEBERT AT BEDSIDE EXPLAINED TO PT WILL KEEP ANOTHER DAY UNTIL TOLERATING DIET WELL. PT VERBALIZED UNDERSTANDING. WILL CONTINUE TO MONITOR. CALL LIGHT IN REACH. BED IN LOWEST POSITION.
--- NOTE | 2019-08-08 09:18 | NUR ---
PT SITTING UP AT BEDSIDE. NO ACUTE RESP DISTRESS NOTED ON RA. PT DENIES ANY PAIN AT THIS TIME. BLOOD PRESSURE CHECKED WAS 139/64. GIVEN PO MEDS. TOLERATED WELL. IV TO LFA PATENT AND INFUSING. NO REDNESS OR SWELLING NOTED. ASSISTED PT BACK TO BED. CALL LIGHT IN REACH. BED IN LOWEST POSITION. WILL CONTINUE TO MONITOR.
[2019-08-08 09:36] VITALS: BP 142/64
--- NOTE | 2019-08-08 12:47 | NUR ---
PT SITTING UP IN BED. NO ACUTE RESP DISTRESS NOTED ON RA. PT DENIES ANY PAIN AT THIS TIME. PT STATES "I AM STILL HAVING DIARRHEA." PT ENCOURAGED TO EAT LUNCH TOLERATED. BLOOD SUGAR CHECKED WAS 94. NO COVERAGE NEEDED. IV PATEN AND INFUSING TO LFA. NO REDNESS OR SWELLING NOTED. WILL CONTINUE TO MONITOR. CALL LIGHT IN REACH. BED IN LOWEST POSITION.
--- NOTE | 2019-08-08 13:33 | NUR ---
1. Recommend continuing [facility] diet.
--- NOTE | 2019-08-08 13:33 | NUR ---
Initial Nutrition Assessment: 207/B BERNIE LEON MR Dx: general weakness, dehydration, diverticulitis PMHx: HTN, DM, Asthma, HLD PSHx: None Labs: BG 125H, CREAT 1.3H, ALB 2.8L, CA 8.3L, HGB 11.1L, MG 1.6L Meds: Adalat, ambien, Benadryl, cipro, Diflucan, flagyl, morphine Diet: [facility] PO intake since admission: (08/07) dinner 60%, breakfast 100%, (08/06) dinner 80%, breakfast 100% Ht: 149.86 cm (59") Wt: 77.1 kg (170#) BMI: 34.3 kg/m2 Bed scale: 77.1 kg IBW: 95# (43 kg) %IBW: 178 UBW: 170# Age: 79/F Food Allergies: NKFA Skin: intact Florin: 19 Edema: none GI: Last BM: 08/07 Per H&P, Pt is a 59 F PMH HTN, DM, Asthma, HLD, presents with 3 day history of worsening abdominal pain. RD Note (08/08): Patient was alert and oriented but appeared weak and drowsy. Patient said that's eh ate cream of wheat and kolb for breakfast this morning. Patient mentioned her food preferences and those were updated in computrition. Problem with: N/V/D/C: some diarrhea Problems with: Chewing: Swallowing: none Current appetite: poor Recent wt change: none %wt change: n/a Vitamin/Supplement use: fish oil, iron Special diet at home: Diabetic Physical activity: sedentary Nutrition education given: Diabetic and high fiber diet education was provided to the patient. Food-drug interactions: none Education given: n/a Estimated Nutritional Needs Based on adjusted body weight (52 kg) Energy: 8246-8325 kcal/day (30-35 kcal/kg for geriatric maintenance) Protein: 62-73 g/day (1.2-1.4 g/kg for geriatric maintenance) Fluid: 6890-9184 mL/day (1 mL/kcal) Nutrition Diagnosis: 1. Inadequate oral intake related to poor appetite as evidenced by current PO <75% Intervention 1. Recommend continuing [facility] diet. Monitor/Evaluate Goal: PO intake at least 75% of estimated needs Monitor: PO intake, Labs, GI function F/U in 3-5 days as moderate risk
--- NOTE | 2019-08-08 17:30 | NUR ---
PT SITTING UP IN BED. NO ACUTE RESP DISTRESS NOTED ON RA. PT DENIES ANY ABDOMINAL PAIN AT THIS TIME. IV ANTIBIOTICS INFUSING TO LFA. NO REDNESS OR SWELLING NOTED. PT C/O ITCHINESS TO GROIN. MEDICATED PER EMAR. BLOOD SUGAR CHECKED WAS 137. NO COVERAGE NEEDED. PT STATES "I AM FEELING BETTER TODAY. I WAS ABLE TO SLEEP." WILL CONTINUE TO MONITOR. CALL LIGHT IN REACH. BED IN LOWEST POSITION.
[2019-08-08 17:52] VITALS: BP 172/61
[2019-08-08 18:43] VITALS: BP 153/52
--- NOTE | 2019-08-08 18:44 | NUR ---
PT SITTING UP IN BED. PT DENIES ANY ITCHINESS AT THIS TIME. IV TO LFA PATENT AND INFUSING. NO REDNESS OR SWELLING NOTED. PT STATES "I HAVE A LITTLE BIT OF NAUSEA BUT IT IS TOLERABLE AT THIS TIME." PT C/O MILD ABDOMINAL PAIN TO RUQ DULL 01/01. PT STATES "ILL ASK FOR PAIN MEDICATION LATER TODAY." WILL ENDORSE TO UPPER LEATHER CUTTER RN. CALL LIGHT IN REACH. BED IN LOWEST POSITION.
--- NOTE | 2019-08-08 19:49 | NUR ---
PT RECIEVED AAO REG RESP NO SOB V/S STABLE,KEPT CLEAN AND DRY TO TOUCH,IV INFUSING WELL WITH THE SITE PATENT AND INTACT,ABDO IS SOFT WITH ACTIVE BOWEL SOUNDS,MADE COMFORTABLE IN BED,CALL LIGHT EASY REACHED AND WILL CONTINUE TO MONITOR.
[2019-08-08 22:07] VITALS: BP 151/61
[2019-08-08 22:12] VITALS: Ht 149.9 cm; Wt 77.1 kg
[2019-08-09 06:12] LABS: BASOPHIL % 0.4 % (0-2); PLATELET COUNT 201 x10^3mcL (130-400)
[2019-08-09 06:16] LABS: ALKALINE PHOSPHATASE 68 U/L (46-116); ALT/SGPT 29 U/L (14-59); AST/SGOT 55 U/L (15-37); BILIRUBIN TOTAL 0.34 mg/dL (0.20-1.00); CALCIUM 8.5 mg/dL (8.5-10.1); CARBON DIOXIDE 25.7 mmol/L (21-32); CHLORIDE SERUM 107 mmol/L (98-107); CREATININE SERUM 1.4 mg/dL (0.6-1.0); GLUCOSE SERUM 156 mg/dL (74-106); MAGNESIUM 2.1 mg/dL (1.8-2.4); POTASSIUM SERUM 3.8 mmol/L (3.5-5.1); SODIUM SERUM 142 mmol/L (136-145); TOTAL PROTEIN, SERUM 6.3 g/dL (6.4-8.2)
[2019-08-09 06:17] VITALS: BP 136/58
[2019-08-09 06:32] LABS: RED CELL DISTRIBUTION WIDTH 14.6 % (11.5-14.5)
[2019-08-09 06:33] LABS: ALBUMIN 3.1 g/dL (3.4-5.0)
--- NOTE | 2019-08-09 06:42 | NUR ---
PT HAD A RESTING NIGHT NO CHANGE AT THIS TIME,WILL CONTIUE TO MONITOR.
--- NOTE | 2019-08-09 06:43 | NUR ---
PT HAD A RESTING NIGHT NO CHANGE AT THIS TIME,WILL CONTINUE TO MONITOR.
--- NOTE | 2019-08-09 07:30 | NUR ---
PT IS AAOX4. NORMAL S1S2 NOTED. RESP EVEN AND UNLABORED. LUNG SOUNDS CTA. ON R/A. NO COUGH NOTED. ABDOMEN ROUND, SOFT, NONTENDER, NONDISTENDED. BOWEL SOUNDS ACTIVE X4. PT DENIES N/V AND DIARRHEA AT THIS TIME. NO DIARRHEA NOTED ON PRIOR NOC SHIFT. IV CATH RUNNING TO LFA. SITE WNL. NO S/S OF INFECTION OR INFILTRATION. PT DENIES PAIN AND DISCOMFORT AT THIS TIME. CALL LIGHT WITHIN REACH. BED IN LOWEST POSTION.
[2019-08-09 09:05] VITALS: BP 133/54
--- NOTE | 2019-08-09 09:24 | NUR ---
SCHEDULED MEDS GIVEN AND TOLERATED WELL. PT DENIES PAIN AND DISCOMFORT. B/P 133/82. HR 82. RESP EVEN AND UNLABORED. NO DISTRESS NOTED. CALL LIGHT WITHIN REACH.
--- NOTE | 2019-08-09 12:37 | NUR ---
SCHEDULED MED GIVEN AND TOLERATED WELL. REVIEWED CHART AND ORDER WITH PT, ALL QUESTIONS AND CONCERNS ANSWERED. RESP EVEN AND UNLABORED. NO DISTRESS NOTED. CALL LIGHT WITHIN REACH.
--- NOTE | 2019-08-09 14:00 | NUR ---
DR. GARCIA HULL DRAFTER MET WITH PT AND DISCUSSED POC. PT HAD C/O BEING UNABLE TO MAINTAIN DIET DUE TO NAUSEA. DR. GARCIA STATED HE WILL CHANGE THE PT'S DIET AND INCREASE FIBER FOR THE PT TO DECREASE THE NAUSEA. PT AGREED WITH POC.
--- NOTE | 2019-08-09 14:54 | NUR ---
PHENERGAN 12.5 DILUTED IN 20ML NS IVP WITH IVF RUNNING AT 75ML, FLUSHED WITH 10 ML N/S. TYLENOL #3 PO GIVEN FOR THROBBING H/A 03/03. EXTRA FLUIDS GIVEN AND ENCOURAGED. RESP EVEN AND UNLABORED. NO DISTRESS NOTED. CALL LIGHT WITHIN REACH.
[2019-08-09 16:04] VITALS: BP 149/61
--- NOTE | 2019-08-09 16:27 | NUR ---
REPORTED TO DR. GARCÍA THAT PT HAD ITCHING, NUMBNESS AND TINGLING TO ARMS, HANDS AND MOUTH AFTER TAKING TYLENOL WITH CODEINE #3. RECEIVED ORDER FOR PT TO NOT ANY MORE NARCOTICS, TO D/C TYLENOL WITH CODEINE #3, AND TO ADD MED PAIN MED TYLENOL 650MG PO Q 6 HOURS PRN. ORDERS NOTED AND CARRIED. PT MADE AWARE. REASSESSED PT. PT S/P BENEDRYL PO, PT NUMBNESS AND TINGLING HAS SUBSIDED. RESP EVEN AND UNLABORED. NO DISTRESS NOTED. CALL LIGHT WITHIN REACH.
--- NOTE | 2019-08-09 17:04 | NUR ---
BS 168, 3 UNITS REG INSULIN GIVEN AT [facility]. PT STATES SHE HAS N/A 4/10 BUT DOES NOT WANT PAIN MEDICATION AT THIS TIME. PT STATES NUMBNESS AND TINGLING TO ARMS, HANDS, AND MOUTH HAVE ALMOST SUBSIDED. RESP EVEN AND UNLABORED. NO DISTRESS NOTED. CALL LIGHT WITHIN REACH.
--- NOTE | 2019-08-09 18:34 | NUR ---
PT IS [id number]. RESP EVEN AND UNLABORED. PT STATES SHE HAS H/A PAIN 4/10 AT THIS TIME BUT STATES SHE DOES NOT WANT PAIN MEDICATION AT THIS TIME. IVF RUNNING TO [facility]. SITE WNL. BED IN LOWEST POSITION. CALL LIGHT WITHIN REACH. WILL ENDORSE ALL CARE TO NOC RN.
--- NOTE | 2019-08-09 19:35 | NUR ---
RECEIVED REPORT FROM DAY SHIFT NURSE, RASHEED ALBERTO. PT IS AAOX4. SPEECH IS CLEAR. DENIES STACY. DENIES CP. PULSES ARE PALPABLE. NO EDEMA NOTED. BREATHING IS EVEN AND UNLABORED ON RA. LUNG SOUNDS CTA. NO SIGNS OF RESP. DISTRESS. ABD IS SOFT AND ROUND. BS ACTIVE IN ALL 4Q. VOIDS FREELY, BRP. MILD GENERALIZED WEAKNESS, AMBULATORY WITH ASSIST. SKIN INTACT. PT DENIES ANY NAUSEA OR ITCHINESS AT THIS TIME. BED IN LOWEST POSITION. CALL LIGHT WITHIN REACH. WILL CONTINUE TO MONITOR.
[2019-08-09 20:38] VITALS: BP 140/49
--- NOTE | 2019-08-09 22:10 | NUR ---
ROUTINE MEDICATIONS ADMINSTERED AND TOLERATED WELL. NO ACUTE DISTRESS NOTED. PT IS STILL C/O OF NAUSEA. PROMETHAZINE PRN ADMINSTERED PER MAR ORDER. OFFERED PT ICE CHIPS, ELEVATED HOB, PROVIDED SPRITE. BED IN LOWEST POSITION. CALL LIGHT WITHIN REACH. WILL CONTINUE TO MONITOR.
--- NOTE | 2019-08-10 | NUR ---
PT IS RESTING COMFORTABLY WITH EYES CLOSED, BUT EASILY AROUSABLE WHEN SPOKEN TO. BREATHING IS EVEN AND UNLABORED ON RA. NO SIGNS OF RESP DISTRESS. BED IN LOWEST POSITION. CALL LIGHT WITHIN REACH. WILL CONTINUE TO MONITOR.
--- NOTE | 2019-08-10 02:24 | NUR ---
PT IS RESTING COMFORTABLY WITH EYES CLOSED. BED IN LOWEST POSITION. CALL LIGHT WITHIN REACH. WILL CONTINUE TO MONITOR.
[2019-08-10 05:54] VITALS: BP 130/51
--- NOTE | 2019-08-10 06:55 | NUR ---
PT SLEPT IN INTERVALS THROUGHOUT THE NIGHT AND COMPLIED WITH NURSING CARE WITH NO ACUTE EVENTS OCCURRING DURING THE SHIFT. COMFORT AND SAFETY MEASURES MAINTAINED. ALL NEEDS ASSESSED AND ATTENDED TO. WILL CONTINUE TO MONITOR AND ENDORSE CARE TO DAY SHIFT NURSE.
--- NOTE | 2019-08-10 07:30 | NUR ---
PT IS AAOX4. RESP EVEN AND UNLABORED. LUNG SOUNDS CTA. ON R/A. NORMAL S1S2 NOTED. ABDOMEN SOFT, NONTENDER, NONDISTENDED. BOWEL SOUNDS ACTIVE X4 QUADS. PT DENIES N/V AT THIS TIME. NO DIARRHEA OR BM DURING NOC SHIFT. IVF RUNNING TO [facility]. SITE WNL. SKIN CDI. NO EDEMA NOTED. PT DENIES PAIN AND DISCOMFORT. CALL LIGHT WITHIN REACH. BED IN LOWEST POSITION. WILL CONTINUE TO MONITOR.
[2019-08-10 08:55] VITALS: BP 145/65
--- NOTE | 2019-08-10 09:33 | NUR ---
DR. MCCARTHY MET WITH PT AND DISCUSSED POC. ASSESSED PT'S SUPPORT AT HOME. PT STATED A NEIGHBOR COULD CHECK ON HER AND SHE HAS SU[employer]IC[employer] AT HOME FOR FOOD. PT STATED SHE TRAVELS BY [employer] [facility] [employer] AND CAN CALL THEM TO PICK HER UP AT THE HOSPITAL. DR. MCCARTHY STATED HE WILL DECREASE THE STRENGTH OF ABT THE PT IS TAKING AND WILL PRESCRIBED AN ANTI-NAUSEA MED FOR HER TO USE AT HOME TO CONTROL THE PT'S NAUSEA. PT AGREED WITH POC.
[2019-08-10] MEDS ORDERED: FLA500 PO (09:38)
[2019-08-10] MEDS ORDERED: LEVAQUIN750 MG PO (09:38)
[2019-08-10] MEDS ORDERED: ZOF4 PO (09:39)
--- NOTE | 2019-08-10 09:40 | NUR ---
SCHEDULED MEDS GIVEN AND TOLERATED WELL. PT DENIES N/V AT THIS TIME. RESP EVEN AND UNLABORED. NO DISTRESS NOTED. CALL LIGHT WITHIN REACH.
--- NOTE | 2019-08-10 10:53 | NUR ---
ZOFRAN 4 MG IVP GIVEN FOR MILD NAUSEA. SCHEDULED MED GIVEN AND TOLERATED WELL. PT DENIES PAIN AT THIS TIME. CALL LIGHT WITHIN REACH.
--- NOTE | 2019-08-10 10:58 | NUR ---
PT AND NURSE SPOKE TO PT'S NEIGHBOR, REID FIORDALIZA. REID STATED SHE WILL COMMISSARY MANAGER THE PT AND TAKE HER HOME.
--- NOTE | 2019-08-10 11:59 | NUR ---
BLOOD SUGAR 173, 3 UNITS REG INSULIN GIVEN PER RISS. CALL LIGHT WITHIN REACH.
[2019-08-10 12:57] VITALS: BP 145/65
--- NOTE | 2019-08-10 15:01 | NUR ---
PT DISCHARGED TO HOME IN NO DISTRESS. DISCHARGE INSTRUCTIONS REVIEWED. ALL FORMS SIGNED AND PLACED IN CHART. ALL QUESTIONS AND CONCERNS ANSWERED. RX GIVEN TO PT. IV CATH TO [facility] REMOVED. SITE WNL. NO S/S OF INFECTION OR INFILTRATION. COVERED WITH GAUZE AND BANDAID. VS: T 99.0F, HR 88, RR 18, B/P 145/65, O2 SAT 98% ON R/A. PT DENIES PAIN AND DISCOMFORT AT TIME OF DISCHARGE. PT ASSISSTED TO LOBBY IN W/C BY RN. ALL PERSONAL BELONGINGS TAKEN HOME WITH PT.
== END 2019-08-10 13:40 | disposition home or self-care (01) | DRG 391 ==
LOC: ED 21:49 → MU 08-04 01:02
PROVIDERS: Emergency Medicine; Internal Medicine Pulmonary Disease; ADMIT Internal Medicine
DX: K57.32 Diverticulitis of large intestine without perforation or abscess without bleeding (principal); N17.0 Acute kidney failure with tubular necrosis; J45.909 Unspecified asthma, uncomplicated; E86.0 Dehydration; K52.9 Noninfective gastroenteritis and colitis, unspecified; I12.9 Hypertensive chronic kidney disease with stage 1 through stage 4 chronic kidney disease, or unspecified chronic kidney disease; E11.22 Type 2 diabetes mellitus with diabetic chronic kidney disease; N18.3 Chronic kidney disease, stage 3 (moderate); I25.10 Atherosclerotic heart disease of native coronary artery without angina pectoris; E78.5 Hyperlipidemia, unspecified; I25.2 Old myocardial infarction; Z79.82 Long term (current) use of aspirin; Z79.4 Long term (current) use of insulin; Z79.899 Other long term (current) drug therapy; Z68.35 Body mass index [BMI] 35.0-35.9, adult; Z95.5 Presence of coronary angioplasty implant and graft
CPT/HCPCS: 82962; 87046; 87046-59; 87804; 97116-GP; G0378; J0744; J1450; J1885; J1956; J2270; J2405; J2550; J3475; J3490; J7030; Q0092; Q0163